=== PATIENT | female | born 1995 | race Caucasian/White ===

== ENCOUNTER 2017-11-16 16:48 | Emergency (ER) | payer BC ==
[2017-11-16] MEDS ORDERED: Lidocaine 1%* 5 ML VIAL ONE (18:30)
[2017-11-16] MEDS ORDERED: Tetan/Diph/Pertus SYR(Tdap)* 0.5 ML SYR(BOOSTRIX) use SYR IM ONE (19:29)
[2017-11-16] MEDS ORDERED: Cephalexin CAP* 500 MG PO ONE (19:29)
--- NOTE | 2017-11-16 19:33 | ED ---
Laceration/Wound HPI - HPI Summary HPI Summary: Laceration to right medial calf when patient walked into a bag containing exposed preconstruction manager blade. Bleeding controlled. Denies loss of sensation or function distally. - History of Current Complaint Stated Complaint: RT LEG LAC Time Seen by Provider: 11/16/17 17:42 Hx Obtained From: Patient Pain Intensity: 7 - Allergy/Home Medications Allergies/Adverse Reactions: Allergies Allergy/AdvReac Type Severity Reaction Status Date / Time acetaminophen [From Vicodin] Allergy Nausea And Verified 11/16/17 16:55 Vomiting hydrocodone [From Vicodin] Allergy Nausea And Verified 11/16/17 16:55 Vomiting PMH/Surg Hx/FS Hx/Imm Hx - Immunization History Immunizations Up to Date: Yes Infectious Disease History: No Infectious Disease History: Denies: Traveled Outside the [place] in Last 30 Days - Social History Alcohol Use: Occasionally Substance Use Type: Reports: None Smoking Status (MU): Never Smoked Tobacco Review of Systems Constitutional: Negative Eyes: Negative ENT: Negative Cardiovascular: Negative Respiratory: Negative Gastrointestinal: Negative Genitourinary: Negative Musculoskeletal: Negative Skin: Negative Neurological: Negative Psychological: Normal All Other Systems Reviewed And Are Negative: Yes Physical Exam - Summary Physical Exam Summary: MEDINA centimeter laceration to medial right calf. Triage Information Reviewed: Yes Vital Signs On Initial Exam: Initial Vitals Temp Pulse Resp BP Pulse Ox 98.4 F 91 15 120/66 94 11/16/17 16:52 11/16/17 16:52 11/16/17 16:52 11/16/17 16:52 11/16/17 16:52 Vital Signs Reviewed: Yes Appearance: Positive: Well-Appearing Skin: Positive: Warm Head/Face: Positive: Normal Head/Face Inspection Eyes: Positive: Normal Neck: Positive: Supple Respiratory/Lung Sounds: Positive: Clear to Auscultation Cardiovascular: Positive: Normal Abdomen Description: Positive: Nontender Musculoskeletal: Positive: Normal Neurological: Positive: Normal Psychiatric: Positive: Normal AVPU Assessment: Alert - [place] Coma Scale Best Eye Response: 4 - Spontaneous Best Motor Response: 6 - Obeys Commands Best Verbal Response: 5 - Oriented Coma Scale Total: 15 Procedures - Laceration/Wound Repair 1 Location: lower extremity Description: Linear Anesthesia: Local, 1.0% Length, Depth and Shape: 8cm x 1cm Betadine Prep?: Yes Irrigated w/ Saline (ccs): 40 Laceration/Wound Explored: clean Debridement: minimal Number of Sutures: 8 - 4.0 ethilon Layer Closure?: No Diagnostics - Vital Signs Vital Signs Temp Pulse Resp BP Pulse Ox 11/16/17 16:52 98.4 F 91 15 120/66 94 - Laboratory Lab Statement: Any lab studies that have been ordered have been reviewed, and results considered in the medical decision making process. Laceration Repair Course/Dx - Course Course Of Treatment: Laceration to right medial calf from preconstruction manager blade the patient had packed a bag and then walked into. PMS intact. Wound sutured. Tetanus shot given. Keflex started. Rx for Keflex. - Clinical Impression Provider Diagnoses: Laceration Discharge - Sign-Out/Discharge Documenting (check all that apply): Discharge/Admit/Transfer - Discharge Plan Condition: Stable Disposition: HOME Prescriptions: Cephalexin CAP* [Keflex CAP*] 500 mg PO TID 5 Days #15 cap Patient Education Materials: Care For Your Stitches (ED), Laceration (ED) Referrals: Non Staff,Doctor [Primary Care Provider] - Additional Instructions: Sutures out in 10 days. May wash with warm running water and soap. Do not submerge underwater as an bathing or swimming for a few days. Keep covered when not washing. Return to the ED for any new or worsening symptoms - Billing Disposition and Condition Condition: STABLE Disposition: HOME
[2017-11-16 19:51] VITALS: BP 112/66
== END 2017-11-16 19:50 | disposition home or self-care (01) ==
LOC: ED 16:48
DX: S81.811A Laceration without foreign body, right lower leg, initial encounter (principal); W26.8XXA Contact with other sharp object(s), not elsewhere classified, initial encounter; Y92.9 Unspecified place or not applicable; Z23 Encounter for immunization; Z88.5 Allergy status to narcotic agent; Z88.6 Allergy status to analgesic agent
CPT/HCPCS: 12004; 90471; 90715; 99282; A9270-GY